=== PATIENT | female | born 1975 | race Caucasian/White ===

== ENCOUNTER 2019-12-11 11:54 | Emergency (ER) | payer OTHER, SELFPAY ==
--- NOTE | ~2019-12-11 | CT_ITS ---
EXAMINATION: CTA chest PE protocol DATE: 12/11/2019 14:17 INDICATION: Shortness of breath. Left chest pain. TECHNIQUE: Computed tomography angiography (CTA) of the chest was performed with 100 mL Omnipaque-350 intravenous contrast timed to evaluate the pulmonary arteries. Coronal maximum intensity projection 3D-reconstructions were created by the technologist. Automated exposure control and iterative reconst ruction technique were employed. The dose-length product was 327.72 mGy-cm. COMPARISON: Chest 2 views 12/11/2019 FINDINGS: The lungs demonstrate mild atelectasis. No pleural effusion. The heart size is normal. No p ericardial effusion. There is no pulmonary embolus. There are surgical changes of the stomach. Partia lly visualized is a 2.9 cm cyst in left kidney. There are changes of anterior fusion procedure in cer vical spine. There is mild thoracic spondylosis. IMPRESSION: 1. No pulmonary embolus. Reviewed, dictated and finalized at location A. IMPRESSION: 1. No pulmonary embolus.
--- NOTE | ~2019-12-11 | XR_ITS ---
EXAMINATION: XR chest 2V DATE: 12/11/2019 12:28 INDICATION: Cough TECHNIQUE: PA and lateral views of the chest were obtained. COMPARISON: None FINDINGS: Small left paracardial fat pad. No focal airspace opacities, pulmonary edema, pleural effusion or pne umothorax. The cardiomediastinal silhouette is normal. Mild thoracic spondylosis. IMPRESSION: 1. No acute cardiopulmonary disease. Reviewed, dictated and finalized at location A.
[2019-12-11 12:03] VITALS: BP 140/97; PULSE 95; RESP 18; TEMP 36.2; O2SAT 100
--- NOTE | 2019-12-11 12:05 | ED_ITS ---
I attest that this documentation has been prepared under the direction and in the presence of Cirilo Alvarado DO. Place, Katelen N., TECH, Scribe 12/11/19;12:09 HPI - Wound/Laceration General Chief Complaint: Wound/Laceration Stated Complaint: chest abscess Time Seen by Provider: 12/11/19 12:03 History of Present Illness HPI narrative: A 44 y/o male pt presents to the ED, with c/o lt sided CP and lt sided upper back pain x 1 week. Pt states she has been experiencing SOB, lightheaded, weakness, irritation to bilateral eyes, and cough. Pt denies fever, or N/V/D. She notes her CP and back pain worsens with coughing and upon taking a deep breath. Pt notes a knot above her lt breast and sensitivity to the area and states she has a Hx of rt breast abscess that she had drained at [facility] and was given abx for and it went away. She states this does not feel similar to her last breast abscess. Pt notes having a smoking hx. Related Data Allergies Allergy/AdvReac Type Severity Reaction Status Date / Time Penicillins Allergy Unknown Unknown Verified 12/11/19 12:09 [facility] Family History Family History (Updated 05/11/14 @ 07:13 by DOCTOR UNKNOWN) Father Family history of coronary artery disease Grandparent Family history of coronary artery disease Social History Social History Alcohol intake: current Course Vital Signs Vital signs: Vital Signs Temperature 97.1 F L 12/11/19 12:03 Pulse Rate 95 12/11/19 12:03 Respiratory Rate 18 12/11/19 12:03 Blood Pressure 140/97 H 12/11/19 12:03 Pulse Oximetry 100 12/11/19 12:03 Temperature 97.1 F L 12/11/19 12:03 Pulse Rate 95 12/11/19 12:03 Respiratory Rate 18 12/11/19 12:03 Blood Pressure 140/97 H 12/11/19 12:03 Pulse Oximetry 100 12/11/19 12:03 MDM - Wound/Laceration Lab Data Labs: UCG Bedside Result Negative Reference Range: Negative Influenza A Screen Negative Reference Range: Negative Influenza B Screen Negative Reference Range: Negative
--- NOTE | 2019-12-11 12:47 | ED.CHESTPAIN ---
HPI - Chest Pain General Chief Complaint: Wound/Laceration Stated Complaint: chest abscess Time Seen by Provider: 12/11/19 12:03 Source: patient Mode of arrival: ambulatory Limitations: no limitations History of Present Illness HPI narrative: A 44 y/o female pt presents to the ED, with c/o lt sided CP and lt sided upper back pain x 1 week. Pt states she has been experiencing SOB, lightheaded, weakness, irritation to bilateral eyes, and cough. Pt denies fever, or N/V/D. She notes her CP and back pain worsens with coughing and upon taking a deep breath and her SOB worsens when lying supine. Pt notes a knot above her lt breast and tenderness to the area and states she has a Hx of rt breast abscess x 1 year ago that she had drained at [facility] and was given abx for and it went away. She states this does not feel similar to her last breast abscess. Pt notes having a smoking hx. MD complaint: chest pain (lt sided) and other (lt sided upper back pain) Onset (ago): week(s) (1) Pain location: left chest and other (left upper back) Exacerbating factors: supine (SOB worsens) and other (inhalation, cough) Associated symptoms: dyspnea, cough and other (lightheadedness, weakness, irritation to bilateral eyes) Related Data Allergies Allergy/AdvReac Type Severity Reaction Status Date / Time Penicillins Allergy Unknown Unknown Verified 12/11/19 12:09 Review of Systems Review of Systems: All systems reviewed & are unremarkable except as noted in HPI and below Constitutional: Constitutional: Denies fever(s) and Reports weakness Eyes: Eyes: Reports irritation (bilateral) Cardiovascular: Cardiovascular: Reports chest pain (lt sided) Respiratory: Respiratory: Reports cough, Reports pain on inspiration and Reports dyspnea Gastrointestinal: Gastrointestinal: Denies diarrhea, Denies nausea and Denies vomiting Musculoskeletal: Musculoskeletal: Reports back pain (lt sided, upper) Integumentary/Breasts: Skin/Breast: Reports other (knot and tenderness to lt side of chest above breast) Neurologic: Reports other (lightheadedness) [facility] Past Medical History Medical History (Updated 12/11/19 @ 15:54 by Cirilo Alvarado DO) No significant past medical history Surgical History Surgical History (Updated 12/11/19 @ 13:06 by BENI Kelley) History of tonsillectomy History of tubal ligation Hx of laparoscopic gastric banding Family History Family History (Updated 05/11/14 @ 07:13 by DOCTOR UNKNOWN) Father Family history of coronary artery disease Grandparent Family history of coronary artery disease Social History Social History (Updated 12/11/19 @ 13:26 by Marcelina Veevia680) Smoking status: Smoker, status unknown Alcohol intake: current Comments cervical vertebrae replacement Endometrial ablation (2012) Lt breast abscess drained/treated (2019) Exam Narrative: Exam Narrative: APPEARANCE: No acute distress, nontoxic, resting in bed EYES: EOMI HEENT: Normocephalic, atraumatic, OMM RESPIRATORY: No respiratory distress Clear to auscultation bilaterally with no rhonchi wheezing or rales. CARDIOVASCULAR: Regular rate and rhythm without murmurs rubs or gallops. Chest: Tender to palpation over left anterior chest just left of the sternum and region of ribs 4 which corresponds to the same region in the back of the left breast has no overlying erythema or signs of infection ABDOMINAL: Soft, nontender, nondistended, no rebound or guarding MUSCULOSKELETAl: Moves all extremities. No clubbing, cyanosis or edema. Back: No midline thoracic or lumbar tenderness palpation, tender palpation of the left paravertebral muscles region of ribs 4 pain increased with deep inspiration and coughing NEURO: Awake and alert. Following commands, speech normal, no focal deficits SKIN:: Warm, dry. No rashes lesions or abrasions PSYCHIATRIC: Normal affect/mood, Course Course Emergency Course: Patient states pain is resolved with medication D
[2019-12-11 13:27] LABS: Basophils Absolute Auto 0.1 K/mm3 (0.0-0.1); Basophils Percent Auto 0.8 % (0.2-1.2); Eosinophils Absolute Auto 0.4 K/mm3 (0-0.3); Eosinophils Percent Auto 5.1 % (0-4.4); Hemoglobin 12.2 g/dL (12.0-15.0); Immature Granulocyte Absolute 0.01 K/mm3 (0.00-0.031); Immature Granulocyte Percent A 0.1 % (0-0.5); Lymphocytes Absolute Auto 2.19 K/mm3 (0.9-3.2); Lymphocytes Percent Auto 30.1 % (18.3-44.2); Mean Corpuscular HGB Conc 32.1 g/dl (32-36); Mean Corpuscular Volume 90.5 fl (80-100); Mean Platelet Volume 11.5 fl (7.4-10.4); Monocytes Absolute Auto 0.4 K/mm3 (0.1-0.6); Monocytes Percent Auto 5.4 % (2.6-8.5); Neutrophils Absolute Auto 4.3 K/mm3 (1.3-6.7); Neutrophils Percent Auto 58.5 % (45.5-73.1); Platelet Count Result 200 k/mm3 (150-375); Red Cell Distribution Width 14.3 % (11.5-14.5); White Blood Count 7.3 K/mm3 (4.5-10.0)
[2019-12-11 13:38] LABS: Blood Urea Nitrogen 8 mg/dL (7-17); Carbon Dioxide 26 mmol/L (22-30); Chloride 107 mmol/L (98-107); Estimated CRCL calculation 119 ml/min; Estimated Glomerular Filt Rate > 60; Glucose 78 mg/dL (65-105); Potassium 4.1 mmol/L (3.4-5.0); Sodium 137 mmol/L (137-145)
[2019-12-11] MEDS: KETOROLAC 30 MG/ML VIAL (*BKC) IV PUSH (13:39)
== END 2019-12-11 16:30 | disposition home or self-care (01) ==
PROVIDERS: Emergency Provider Emergency Medicine
DX: J06.9 Acute upper respiratory infection, unspecified (principal); R07.89 Other chest pain; Z98.84 Bariatric surgery status; Z96.698 Presence of other orthopedic joint implants
CPT/HCPCS: 36415; 71046; 71275; 80048; 81025; 85025; 87804; 96374; 99284; J1885; Q9967

== ENCOUNTER 2022-10-15 19:17 | Emergency (ER) | payer OTHER, SELFPAY ==
[2022-10-15 19:21] VITALS: BP 150/96; PULSE 76; RESP 20; TEMP 37; O2SAT 100
--- NOTE | 2022-10-15 20:08 | ED.GENADULT ---
HPI - General Adult General Chief complaint: Dental/Oral Stated complaint: Dental abcess Time Seen by Provider: 10/15/22 20:00 History of Present Illness HPI narrative: this is a 47-year-old female presenting with poor dentition and dental pain. Patient is concerned that she has an abscess. Pain started approximately 5 days ago and spreading to her cheek ear and throat. Patient denies fever, chills, sensation of both close throat closure or difficulty breathing. Patient has a dentist that they see when they can afford. Related Data Allergies Allergy/AdvReac Type Severity Reaction Status Date / Time Penicillins Allergy Unknown Unknown Verified 10/15/22 19:58 [facility] Past Medical History Medical History No significant past medical history Surgical History Surgical History History of tonsillectomy History of tubal ligation Hx of laparoscopic gastric banding Family History Family History Father Family history of coronary artery disease Grandparent Family history of coronary artery disease Social History Social History Smoking status: Smoker, status unknown Alcohol intake: current Exam Narrative: APPEARANCE: No apparent distress. Head: Patient has very poor dentition with multiple rotted teeth and many missing teeth. The area of pain has some ulceration but no area of fluctuance of which I can drain. EYES: EOMI, NOSE: Atraumatic NECK: Trachea midline RESPIRATORY: No increased rate of breathing CARDIOVASCULAR: RRR, ABDOMINAL: Non-distended MUSCULOSKELETAl: No obvious deformities NEURO: Alert. Moving 4/4 extremities SKIN:: Warm, dry. Normal color PSYCHIATRIC: Normal affect Course Vital Signs Vital signs: Vital Signs Temperature 98.6 F 10/15/22 19:21 Pulse Rate 76 10/15/22 19:21 Respiratory Rate 20 10/15/22 19:21 Blood Pressure 150/96 H 10/15/22 19:21 Pulse Oximetry 100 10/15/22 19:21 Oxygen Delivery Room Air 10/15/22 19:21 Temperature 98.6 F 10/15/22 19:21 Pulse Rate 76 10/15/22 19:21 Respiratory Rate 20 10/15/22 19:21 Blood Pressure 150/96 H 10/15/22 19:21 Pulse Oximetry 100 10/15/22 19:21 Oxygen Delivery Room Air 10/15/22 19:21 Medical Decision Making MDM Narrative Medical decision making narrative: -Presentation: 39-year-old female presenting with dental pain. -DDX includes but is not limited to: Dental pain, dental caries, dental abscess -Co-morbidities complicating care: penicillin allergy -Social determinants of health: patient cannot afford to have all of her dental work done 1 time -External Chart Review: none -Hx from independent Sources: none -Discussion of Management/Consultants: none -Independent interpretation of studies: none Dx tests considered but not ordered: CT max/facial w/ contrast, no significant swelling/ trismus / fever that would make me concerned for a deeper tissue infection. -Procedures: Dental block using Sensorcaine 3cc -Interventions: Augmentin, [place] -Shared decision making / Disposition: I discussed importance of seeing a dentist/good dental hygiene. Patient will follow-up with a dentist when able. at this time the patient does have some ulceration on her gum but no drainable abscess. I told her that she may develop an abscess at a later date if she does she needs to return to the ED for drainage. Patient verbalized her understanding. -RX Augmentin, Motrin Tylenol Vital Signs Vital Signs: Vital Signs Temperature 98.6 F 10/15/22 19:21 Pulse Rate 76 10/15/22 19:21 Respiratory Rate 20 10/15/22 19:21 Blood Pressure 150/96 H 10/15/22 19:21 Pulse Oximetry 100 10/15/22 19:21 Oxygen Delivery Room Air 10/15/22 19:21 Temperature 98.6 F 10/15/22 19:21 Pulse
[2022-10-15] MEDS: ONDANSETRON HCL ODT 4 MG TABLET PO (20:16)
[2022-10-15] MEDS: BUPivacaine HCL 0.25% PF 10 ML VIAL INFILTRATE (20:16)
[2022-10-15] MEDS: AMOXICILLIN/CLAVULANATE K 875-125 MG TAB 1 TABLET PO (20:17)
[2022-10-15] MEDS: HYDROcodone/acetaminophen (*CRX) 5-325 MG TABLET 1 TAB PO (20:17)
[2022-10-15 20:39] VITALS: BP 170/100; PULSE 72; RESP 16; O2SAT 97
== END 2022-10-15 20:40 | disposition home or self-care (01) ==
LOC: ANHED 20:26
PROVIDERS: Emergency Provider Emergency Medicine
DX: K08.89 Other specified disorders of teeth and supporting structures (principal)
CPT/HCPCS: 99283; A9270

== ENCOUNTER 2024-01-13 13:45 | Emergency (ER) | payer OTHER, SELFPAY ==
--- NOTE | ~2024-01-13 | XR_ITS ---
EXAMINATION: XR ribs RT 2V w CXR 2V DATE: 01/13/2024 14:20 INDICATION: Right chest pain. TECHNIQUE: Frontal and lateral views of the chest and 2 views on 4 radiographs of the right ribs were obtained. COMPARISON: Chest 2 views 12/11/2019, chest CT 12/11/2019 FINDINGS: CHEST TWO VIEWS: There is no pneumonia, pleural effusion, or pneumothorax. The heart size is normal. There are changes of anterior fusion procedure in cervical spine. RIGHT RIBS: There is no rib fracture. IMPRESSION: 1. No rib fracture. Reviewed, dictated and finalized at location A. IMPRESSION: 1. No rib fracture.
[2024-01-13 13:52] VITALS: BP 153/101; PULSE 81; RESP 18; TEMP 36.7; O2SAT 99
--- NOTE | 2024-01-13 14:50 | ED.GENADULT ---
HPI - General Adult General Chief complaint: Skin/Abscess/Foreign Body Stated complaint: abcess Time Seen by Provider: 01/13/24 13:58 Source: patient Mode of arrival: ambulatory Limitations: no limitations History of Present Illness HPI narrative: 48-year-old status post gastric bypass here with the complaints of dental pain and right rib cage pain. Patient states that she been having dental issues for quite a while unable to see a dentist as it is going to cost her 19,000 dollars for her surgery , patient states that have she was at work and 1 of her co-worker accidentally bumped into her and felt a pop in the right side of her chest. She denies any difficulty breathing hurts with movement. Onset (ago): day(s) (1) Location: mouth Quality: aching Pain Consistency: constant Exacerbating factors: none Associated symptoms: denies other symptoms Related Data Allergies Allergy/AdvReac Type Severity Reaction Status Date / Time Penicillins Allergy Unknown Unknown Verified 10/15/22 19:58 Review of Systems Review of Systems: All systems reviewed & are unremarkable except as noted in HPI and below Constitutional: Constitutional: Reports no additional constitutional complaints Eyes: Eyes: Reports no additional eye complaints ENT: Reports as per HPI Cardiovascular: Cardiovascular: Reports no additional cardiovascular complaints Respiratory: Respiratory: Reports as per HPI Genitourinary: Genitourinary: Reports no additional female genitourinary complaints Musculoskeletal: Musculoskeletal: Reports no additional musculoskeletal complaints Integumentary/Breasts: Skin/Breast: Reports system reviewed and no additional complaints, except as docu Neurologic: Reports system reviewed and no additional complaints, except as documented PMFSH Past Medical History Medical History No significant past medical history Surgical History Surgical History History of tonsillectomy History of tubal ligation Hx of laparoscopic gastric banding Family History Family History Father Family history of coronary artery disease Grandparent Family history of coronary artery disease Social History Social History Smoking status: Smoker, status unknown Alcohol intake: current Exam Narrative: GENERAL: Well-appearing, well-nourished, and in no acute distress. HEAD: Normocephalic, atraumatic. EYES: PERRLA and EOMI. ENT: Nares clear, no rhinorrhea or epistaxis. Mucous membranes moist.multiple dental caries all the way up to the root , no obvious abscess NECK: Supple. CHEST: Clear to auscultation. No respiratory distress. HEART: Regular rate and rhythm. No murmur heard. Normal peripheral pulses. ABDOMEN: Soft, nontender, nondistended, normal active bowel sounds. EXTREMITIES: Normal range of motion. No edema. SKIN: Warm, dry, no rash. NEURO: No focal deficits. Alert and oriented x3. PSYCH: Normal mood and affect. Course Vital Signs Vital signs: Vital Signs Temperature 36.7 C 01/13/24 13:52 Pulse Rate 01/13/24 13:52 Respiratory Rate 01/13/24 13:52 Blood Pressure 153/101 H 01/13/24 13:52 Pulse Oximetry 99 01/13/24 13:52 Temperature 36.7 C 01/13/24 13:52 Pulse Rate 01/13/24 13:52 Respiratory Rate 18 01/13/24 13:52 Blood Pressure 153/101 H 01/13/24 13:52 Pulse Oximetry 99 01/13/24 13:52 Medical Decision Making Vital Signs Vital Signs: Vital Signs Temperature 36.7 C 01/13/24 13:52 Pulse Rate 01/13/24 13:52 Respiratory Rate 01/13/24 13:52 Blood Pressure 153/101 H 01/13/24 13:52 Pulse Oximetry 99 01/13/24 13:52 Temperature 36.7 C 01/13/24 13:52 Pulse Rate 01/13/24 13:52 Respiratory Rate 01/13/24 13:52 Blood Pressure 153/10
[2024-01-13 15:14] VITALS: BP 148/93; PULSE 75; RESP 17; TEMP 36.8; O2SAT 100
== END 2024-01-13 15:16 | disposition home or self-care (01) ==
PROVIDERS: Emergency Provider Family Medicine
DX: K04.7 Periapical abscess without sinus (principal); R07.81 Pleurodynia; Z98.84 Bariatric surgery status
CPT/HCPCS: 71046; 71100; 99283